=== PATIENT | female | born 1985 | race Hispanic/Latino ===

== ENCOUNTER 2022-02-13 09:06 | Outpatient (CLI) | payer OTHER | END 2022-02-13 09:07 | disposition home or self-care (01) | LOC: CSHULT 09:06 | PROVIDERS: ATTEND Family Medicine | DX: O09.522 Supervision of elderly multigravida, second trimester (principal); O32.2XX0 Maternal care for transverse and oblique lie, not applicable or unspecified; Z3A.20 20 weeks gestation of pregnancy | CPT/HCPCS: 76805 ==

== ENCOUNTER 2022-06-23 14:34 | Inpatient (IN) | payer OTHER ==
[2022-06-22 11:56] LABS: Hemoglobin 13.8 g/dL (12.0-15.5); Mean Corpuscular HGB CONC 34.4 g/dL (32.0-36.0); Mean Corpuscular Hemoglobin 30.9 pg (27.0-33.0); Mean Corpuscular Volume 89.7 fl (81.6-98.3); Mean Platelet Volume 10.4 fl (7.4-10.4); Platelet Count 234 10x3/uL (150-450); RBC Distribution Width 13.8 % (11.5-14.5); Red Blood Cell (RBC) Count 4.47 10x6/uL (3.90-5.03); White Blood Cell (WBC) Count 10.6 10x3/uL (3.5-10.5)
[2022-06-22 12:25] LABS: SARS-CoV-2 NAA Rapid Test Not Detected (NotDetected)
[2022-06-22 12:32] LABS: Syphilis Antibody Nonreactive (Nonreactive); Syphilis Antibody Index 0.05 S/CO (<1.00 Non-Reactive)
[2022-06-22 12:34] LABS: Hep B Surf Ag Non-Reactive S/CO (NonReactive)
[2022-06-22 12:51] LABS: HBSAg Index 0.18 S/CO (0-0.99)
[2022-06-23 14:42] VITALS: BMI 38.7
[2022-06-23] MEDS ORDERED: Bicitra 30 ML UDCUP PO PRN (14:42)
[2022-06-23] MEDS ORDERED: Famotidine/PF 20 mg/2ml Vial SLOW IVP PRN (14:42)
[2022-06-23] MEDS ORDERED: Ondansetron PF 4 MG/2 ML Vial IVP PRN ×2 (14:42→18:20)
[2022-06-23] MEDS ORDERED: hydrALAZINE 20 MG/ML VIAL SLOW IVP PRN ×2 (14:42→22:42)
[2022-06-23] MEDS ORDERED: Promethazine HCl 25 MG/ML VIAL IM PRN ×3 (14:42→22:42)
[2022-06-23] MEDS ORDERED: CEFAZOLIN 2 GM in Sodium Chloride 0.9% 100 ML IVPB SCH (14:42)
[2022-06-23] MEDS: Lactated Ringer's 1,000 ML IV SCH ×2 (15:40→16:55)
[2022-06-23] MEDS ORDERED: Phenylephrine 40 MG/NS 250 ML 250 ML ONE (16:11)
[2022-06-23] MEDS ORDERED: Ondansetron PF 4 MG/2 ML Vial ONE ×2 (16:12→18:04)
[2022-06-23] MEDS ORDERED: Morphine PF 10 MG/10 ML VIAL ONE (16:12)
[2022-06-23] MEDS ORDERED: Dexamethasone 4 mg/ml Vial ONE (16:12)
[2022-06-23] MEDS ORDERED: Oxytocin 10 UNITS/ML VIAL ONE (16:12)
[2022-06-23] MEDS ORDERED: ePHEDrine Sulfate 50 MG/10 ML VIAL ONE (18:04)
[2022-06-23] MEDS ORDERED: PHENYLEPHRINE-NS 100 MCG/ML 10 ML SYRINGE ONE (18:04)
[2022-06-23] MEDS ORDERED: Fentanyl 100 MCG/2 ML VIAL ONE (18:04)
[2022-06-23] MEDS ORDERED: Promethazine HCl 25 MG SUPP PR PRN (18:20)
[2022-06-23] MEDS ORDERED: Naloxone HCl 0.4 mg/ml Vial IVP PRN ×2 (18:20)
[2022-06-23] MEDS ORDERED: Moisturizing Cream (Eucerin) 113 GM JAR TOP PRN (18:20)
[2022-06-23] MEDS ORDERED: diphenhydrAMINE 50 MG/ML VIAL IVP PRN (18:20)
[2022-06-23] MEDS ORDERED: Communication Order-Pharmacy FS SCH ×2 (18:30→22:45)
[2022-06-23] MEDS ORDERED: Ketorolac Tromethamine 30 MG/ML VIAL ONE (19:44)
[2022-06-23] MEDS ORDERED: NS w/ Oxytocin 30 units 500 ML ONE (21:43)
[2022-06-23] MEDS ORDERED: HYDROcodone/Acetaminophen 5/325 mg Tablet PO PRN (22:42)
[2022-06-23] MEDS ORDERED: Lanolin Ointment 7 GM TUBE TOP PRN (22:42)
[2022-06-23] MEDS ORDERED: Boostrix 0.5 ML (Tdap) VIAL IM ONE (22:42)
[2022-06-23] MEDS ORDERED: diphenhydrAMINE 25 MG CAP PO PRN (22:42)
[2022-06-23] MEDS ORDERED: Docusate 100 MG CAP PO SCH (23:00)
[2022-06-23] MEDS ORDERED: Ferrous Sulfate 325 MG TAB PO SCH (23:00)
[2022-06-23] MEDS ORDERED: NS w/ Oxytocin 30 units 500 ML IV SCH (23:00)
[2022-06-23] MEDS: Ondansetron PF 4 MG/2 ML Vial IVP PRN (23:20)
[2022-06-24] MEDS ORDERED: Ketorolac Tromethamine 30 MG/ML VIAL IVP SCH (02:00)
[2022-06-24] MEDS: Ketorolac Tromethamine 30 MG/ML VIAL IVP SCH ×3 (02:12→13:26)
[2022-06-24 04:12] LABS: Hemoglobin 13.3 g/dL (12.0-15.5); Mean Corpuscular HGB CONC 34.5 g/dL (32.0-36.0); Mean Corpuscular Hemoglobin 31.2 pg (27.0-33.0); Mean Corpuscular Volume 90.6 fl (81.6-98.3); Mean Platelet Volume 10.5 fl (7.4-10.4); Platelet Count 224 10x3/uL (150-450); RBC Distribution Width 13.4 % (11.5-14.5); Red Blood Cell (RBC) Count 4.26 10x6/uL (3.90-5.03); White Blood Cell (WBC) Count 14.2 10x3/uL (3.5-10.5)
[2022-06-24] MEDS: Prenatal Vitamin 1 TAB PO SCH (08:36)
[2022-06-24] MEDS: Docusate 100 MG CAP PO SCH ×2 (08:37→21:41)
[2022-06-24] MEDS: Ferrous Sulfate 325 MG TAB PO SCH (08:39)
[2022-06-24] MEDS: Ondansetron PF 4 MG/2 ML Vial IVP PRN (14:57)
[2022-06-24] MEDS: Simethicone Chewable 80 MG TAB PO PRN ×2 (15:29→19:33)
[2022-06-24] MEDS: HYDROcodone/Acetaminophen 5/325 mg Tablet PO PRN ×2 (16:01→19:33)
[2022-06-24] MEDS: Naloxone HCl 0.4 mg/ml Vial IV PRN ×2 (17:47→18:38)
[2022-06-24] MEDS: Ibuprofen 800 MG TAB PO SCH (21:42)
[2022-06-25] MEDS: Simethicone Chewable 80 MG TAB PO PRN ×5 (00:18→22:05)
[2022-06-25] MEDS: HYDROcodone/Acetaminophen 5/325 mg Tablet PO PRN ×6 (00:18→22:05)
[2022-06-25] MEDS: Naloxone HCl 0.4 mg/ml Vial IV PRN (01:32)
[2022-06-25] MEDS: Ibuprofen 800 MG TAB PO SCH ×3 (05:11→21:53)
[2022-06-25] MEDS: Ferrous Sulfate 325 MG TAB PO SCH ×3 (07:47→21:48)
[2022-06-25] MEDS: Docusate 100 MG CAP PO SCH ×2 (08:09→21:53)
[2022-06-25] MEDS: Prenatal Vitamin 1 TAB PO SCH (08:09)
[2022-06-25] MEDS: Bisacodyl 10 MG SUPP PR PRN ×2 (12:42→21:58)
[2022-06-26] MEDS: Simethicone Chewable 80 MG TAB PO PRN ×2 (05:20→10:41)
[2022-06-26] MEDS: Ibuprofen 800 MG TAB PO SCH (05:20)
[2022-06-26] MEDS: HYDROcodone/Acetaminophen 5/325 mg Tablet PO PRN ×2 (05:20→10:41)
[2022-06-26] MEDS: Ferrous Sulfate 325 MG TAB PO SCH (07:34)
[2022-06-26] MEDS: Docusate 100 MG CAP PO SCH (07:57)
[2022-06-26] MEDS: Prenatal Vitamin 1 TAB PO SCH (07:57)
[2022-06-26 08:35] VITALS: BP 107/65; TEMP 98
[2022-06-26] MEDS ORDERED: Milk Of Magnesia 30 ML UDCUP PO SCH (09:15)
== END 2022-06-26 12:15 | disposition home or self-care (01) | DRG 788 ==
LOC: CSHLD 14:34 → CSHPP 21:56
PROVIDERS: ADMIT Family Medicine; ATTEND Family Medicine
PROC: 10D00Z1 Extraction of Products of Conception, Low, Open Approach (ICD-10-PCS; principal; 2022-06-23)
DX: O34.211 Maternal care for low transverse scar from previous cesarean delivery (principal); Z20.822 Contact with and (suspected) exposure to COVID-19; O24.420 Gestational diabetes mellitus in childbirth, diet controlled; Z3A.39 39 weeks gestation of pregnancy; Z37.0 Single live birth
CPT/HCPCS: 36415; 51702; 85027; 86780; 86850; 86900; 86901; 87340; J0690; J1100; J1885; J2274; J2310; J2405; J2590; J3010; J3490; J7120; U0002

== ENCOUNTER 2022-06-29 09:44 | Inpatient (IN) | payer OTHER ==
[2022-06-29 10:49] LABS: Hemoglobin 10.7 g/dL (12.0-15.5); Mean Corpuscular HGB CONC 33.3 g/dL (32.0-36.0); Mean Corpuscular Hemoglobin 30.1 pg (27.0-33.0); Mean Corpuscular Volume 90.4 fl (81.6-98.3); Mean Platelet Volume 10.2 fl (7.4-10.4); Platelet Count 264 10x3/uL (150-450); Red Blood Cell (RBC) Count 3.55 10x6/uL (3.90-5.03); White Blood Cell (WBC) Count 10.1 10x3/uL (3.5-10.5)
[2022-06-29 10:50] LABS: MDiff Complete? YES
[2022-06-29 11:16] LABS: ALT (SGPT) 35 U/L (8-55); AST (SGOT) 21 U/L (5-34); Albumin 2.9 g/dL (3.5-5.0); Alkaline Phosphatase 123 U/L (40-110); Anion Gap 16 mmol/L (10-20); BUN (Urea Nitrogen) 7 mg/dL (7.0-18.7); Bilirubin, Total 0.5 mg/dL (0.2-1.2); Calc. Creatinine Clearance 0 mL/min (70-130); Calcium 8.6 mg/dL (7.8-10.44); Carbon Dioxide 19 mmol/L (22-29); Chloride 104 mmol/L (98-107); Estimated GFR 119; Globulin 3.3 g/dL (2.4-3.5); Glucose 83 mg/dL (70-105); Lipase 10 U/L (8-78); Potassium 3.4 mmol/L (3.5-5.1); Protein, Total 6.2 g/dL (6.0-8.3); Sodium 136 mmol/L (136-145)
[2022-06-29 11:28] LABS: Band 9 % (5-11); Eosinophils 1 % (0-10); Lymphocytes 10 % (21-51); Metamyelocyte 1 % (0-0); Monocytes 4 % (0-10); Myelocyte 1 % (0-0); Neutrophil 73 % (42-75); Reactive Lymphocytes 1 % (0-10)
[2022-06-29 11:29] LABS: Platelet Morphology Comment Appears Adequate
[2022-06-29 11:30] LABS: RBC Morphology Normal
[2022-06-29 11:48] LABS: Bilirubin Neg (Negative); Blood, Urine 25 (Negative); Clarity Clear (Clear); Glucose, Urine (Dipstick) Normal (Negative); Ketone, Urine 50 mg/dL (Negative); Leukocyte Negative (Negative); Nitrite Negative (Negative); Protein, Urine (Dipstick) 15 mg/dl (Neg-Trace)
[2022-06-29] MEDS ORDERED: Iopamidol 300 61% 100 ML VIAL FS ONE (11:52)
[2022-06-29 12:07] LABS: Bacteria/HPF Rare-Few HPF (None Seen); RBC/HPF 0-3 HPF (0-3); Squamous Epithelial 0-3 HPF (0-3); Transitional Epithelial 0-3 HPF (None Seen); WBC/HPF 0-3 HPF (0-3)
[2022-06-29] MEDS ORDERED: Ondansetron PF 4 MG/2 ML Vial ONE (12:42)
[2022-06-29] MEDS ORDERED: Morphine 4 MG/ML VIAL ONE (12:42)
[2022-06-29] MEDS ORDERED: hydrALAZINE 20 MG/ML VIAL SLOW IVP PRN (14:27)
[2022-06-29] MEDS ORDERED: Acetaminophen 650 MG Suppository PR PRN (14:28)
[2022-06-29] MEDS ORDERED: Ondansetron PF 4 MG/2 ML Vial IVP PRN (14:28)
[2022-06-29] MEDS ORDERED: Ondansetron ODT 4 MG TAB PO PRN (14:28)
[2022-06-29] MEDS ORDERED: Acetaminophen 325 MG TAB PO PRN (14:28)
[2022-06-29] MEDS ORDERED: Electrolyte Replacement Protocol 1 EACH FS SCH (14:30)
[2022-06-29] MEDS ORDERED: Polyethylene Glycol 3350 17 GM Packet PO PRN (14:32)
[2022-06-29 15:04] LABS: Magnesium 1.9 mg/dL (1.6-2.6)
[2022-06-29] MEDS ORDERED: Electrolyte Replacement Protocol FS PRN (15:30)
[2022-06-29 16:41] VITALS: BMI 40.1
[2022-06-29] MEDS: Morphine 4 MG/ML VIAL SLOW IVP PRN ×2 (16:41→20:46)
[2022-06-29] MEDS: Sodium Chloride 0.9% 1,000 ML IV SCH ×2 (16:41→23:45)
[2022-06-29] MEDS ORDERED: Potassium Chloride 20 MEQ TAB PO SCH (18:15)
[2022-06-29] MEDS ORDERED: Magnesium 2 GM/50 ML(in water) 2 GM in Premix Bag 1 BAG IVPB SCH (18:15)
[2022-06-30] MEDS: Morphine 4 MG/ML VIAL SLOW IVP PRN ×5 (01:03→20:06)
[2022-06-30 04:29] LABS: Mean Corpuscular HGB CONC 33.6 g/dL (32.0-36.0); Mean Corpuscular Hemoglobin 30.5 pg (27.0-33.0); Mean Corpuscular Volume 90.9 fl (81.6-98.3); Mean Platelet Volume 10.3 fl (7.4-10.4); Platelet Count 280 10x3/uL (150-450); RBC Distribution Width 14.1 % (11.5-14.5); Red Blood Cell (RBC) Count 3.28 10x6/uL (3.90-5.03); White Blood Cell (WBC) Count 14.1 10x3/uL (3.5-10.5)
[2022-06-30 04:45] LABS: MDiff Complete? YES
[2022-06-30 04:48] LABS: Band 22 % (5-11); Lymphocytes 18 % (21-51); Metamyelocyte 1 % (0-0); Monocytes 13 % (0-10); Myelocyte 1 % (0-0); Neutrophil 44 % (42-75)
[2022-06-30 04:49] LABS: Dohle Bodies SLIGHT; Large Platelets SLIGHT; Platelet Morphology Comment Appears Adequate
[2022-06-30 04:50] LABS: RBC Morphology Normal
[2022-06-30 04:58] LABS: ALT (SGPT) 42 U/L (8-55); AST (SGOT) 34 U/L (5-34); Albumin 2.7 g/dL (3.5-5.0); Alkaline Phosphatase 129 U/L (40-110); Anion Gap 13 mmol/L (10-20); BUN (Urea Nitrogen) 5 mg/dL (7.0-18.7); Bilirubin, Total 0.4 mg/dL (0.2-1.2); Calc. Creatinine Clearance 172 mL/min (70-130); Calcium 8.1 mg/dL (7.8-10.44); Carbon Dioxide 20 mmol/L (22-29); Chloride 110 mmol/L (98-107); Estimated GFR 117; Globulin 3.2 g/dL (2.4-3.5); Glucose 90 mg/dL (70-105); Lipase 9 U/L (8-78); Magnesium 2.1 mg/dL (1.6-2.6); Potassium 3.1 mmol/L (3.5-5.1); Protein, Total 5.9 g/dL (6.0-8.3); Sodium 140 mmol/L (136-145)
[2022-06-30] MEDS ORDERED: Potassium Chloride 20 MEQ TAB PO SCH (05:15)
[2022-06-30] MEDS: Potassium Chloride 20 MEQ in Premix Bag 1 BAG IVPB SCH ×2 (06:36→09:51)
[2022-06-30] MEDS ORDERED: Piperacillin/Tazobactam 3.375 GM in Sodium Chloride 0.9% 100 ML IVPB SCH ×2 (09:00→12:00)
[2022-06-30] MEDS: Sodium Chloride 0.9% 1,000 ML IV SCH ×4 (09:46→23:04)
[2022-06-30] MEDS ORDERED: Fentanyl 100 MCG/2 ML VIAL ONE (11:13)
[2022-06-30] MEDS: Piperacillin/Tazobactam 3.375 GM in Sodium Chloride 0.9% 100 ML IVPB SCH ×3 (15:39→20:35)
[2022-07-01] MEDS: Morphine 4 MG/ML VIAL SLOW IVP PRN ×5 (00:12→20:14)
[2022-07-01 04:54] LABS: ALT (SGPT) 40 U/L (8-55); AST (SGOT) 27 U/L (5-34); Albumin 2.6 g/dL (3.5-5.0); Alkaline Phosphatase 113 U/L (40-110); Anion Gap 14 mmol/L (10-20); BUN (Urea Nitrogen) 8 mg/dL (7.0-18.7); Bilirubin, Total 0.5 mg/dL (0.2-1.2); Calc. Creatinine Clearance 184 mL/min (70-130); Calcium 8.3 mg/dL (7.8-10.44); Carbon Dioxide 17 mmol/L (22-29); Chloride 112 mmol/L (98-107); Estimated GFR 119; Globulin 3.1 g/dL (2.4-3.5); Glucose 80 mg/dL (70-105); Lipase 6 U/L (8-78); Mean Corpuscular HGB CONC 33.9 g/dL (32.0-36.0); Mean Corpuscular Hemoglobin 30.3 pg (27.0-33.0); Mean Corpuscular Volume 89.4 fl (81.6-98.3); Mean Platelet Volume 10.1 fl (7.4-10.4); Platelet Count 286 10x3/uL (150-450); Potassium 3.2 mmol/L (3.5-5.1); Protein, Total 5.7 g/dL (6.0-8.3); RBC Distribution Width 14.3 % (11.5-14.5); Sodium 140 mmol/L (136-145); White Blood Cell (WBC) Count 16.2 10x3/uL (3.5-10.5)
[2022-07-01 04:55] LABS: MDiff Complete? YES
[2022-07-01] MEDS: Sodium Chloride 0.9% 1,000 ML IV SCH ×3 (04:55→22:22)
[2022-07-01] MEDS: Piperacillin/Tazobactam 3.375 GM in Sodium Chloride 0.9% 100 ML IVPB SCH ×3 (04:57→22:23)
[2022-07-01 06:38] LABS: Band 7 % (5-11); Lymphocytes 7 % (21-51); Monocytes 5 % (0-10); Neutrophil 81 % (42-75)
[2022-07-01 06:43] LABS: Hypochromia SLIGHT = 6-15 cells (100X) (0-5/hpf); Platelet Morphology Comment Appears Adequate
[2022-07-01] MEDS ORDERED: Potassium Chloride 20 MEQ TAB PO SCH (09:00)
[2022-07-01] MEDS: Potassium Chloride 20 MEQ in Premix Bag 1 BAG IVPB SCH ×2 (09:26→11:00)
[2022-07-01] MEDS: Pantoprazole 40 MG VIAL IVP SCH (09:27)
[2022-07-01] MEDS ORDERED: Polyethylene Glycol 3350 17 GM Packet PO PRN (12:17)
[2022-07-01] MEDS ORDERED: Docusate 100 MG CAP PO PRN (12:17)
[2022-07-01] MEDS ORDERED: Potassium Chloride 20 MEQ in Premix Bag 1 BAG IVPB SCH (15:00)
[2022-07-01] MEDS ORDERED: Lidocaine 1% PF 5 ML VIAL ONE (16:31)
[2022-07-01] MEDS ORDERED: PROPOFOL 20 ML ONE (16:31)
[2022-07-01] MEDS ORDERED: Succinylcholine 200 MG/10 ml SYRINGE FS ONE (16:32)
[2022-07-01] MEDS ORDERED: Dexamethasone 4 mg/ml Vial ONE (16:32)
[2022-07-01] MEDS ORDERED: Ondansetron PF 4 MG/2 ML Vial ONE (16:32)
[2022-07-01] MEDS ORDERED: Rocuronium Bromide 10 MG/ML (10ML VIAL) ONE (16:32)
[2022-07-01] MEDS ORDERED: Fentanyl 100 MCG/2 ML VIAL ONE ×3 (16:34→18:42)
[2022-07-01] MEDS ORDERED: EPINEPHrine 1 MG/ML AMP ONE (16:55)
[2022-07-01] MEDS ORDERED: Iopamidol 30 ML ONE (16:55)
[2022-07-01] MEDS ORDERED: Bupivacaine 0.25% HCL 30 ML VIAL ONE (16:55)
[2022-07-01] MEDS ORDERED: Glycopyrrolate 0.2 MG/ML 5 ML SYRINGE ONE (18:25)
[2022-07-01] MEDS ORDERED: SUGAMMADEX SODIUM 200 MG/2 ML VIAL ONE (18:44)
[2022-07-02] MEDS: Sodium Chloride 0.9% 1,000 ML IV SCH ×2 (00:28→09:20)
[2022-07-02] MEDS: Morphine 4 MG/ML VIAL SLOW IVP PRN ×2 (00:29→05:57)
[2022-07-02 05:18] LABS: ALT (SGPT) 66 U/L (8-55); Albumin 2.6 g/dL (3.5-5.0); Alkaline Phosphatase 141 U/L (40-110); Anion Gap 16 mmol/L (10-20); BUN (Urea Nitrogen) 7 mg/dL (7.0-18.7); Bilirubin, Total 0.5 mg/dL (0.2-1.2); Calc. Creatinine Clearance 175 mL/min (70-130); Calcium 8.5 mg/dL (7.8-10.44); Carbon Dioxide 16 mmol/L (22-29); Chloride 114 mmol/L (98-107); Estimated GFR 118; Globulin 3.8 g/dL (2.4-3.5); Glucose 139 mg/dL (70-105); Potassium 4.3 mmol/L (3.5-5.1); Protein, Total 6.4 g/dL (6.0-8.3); Sodium 142 mmol/L (136-145)
[2022-07-02 05:27] LABS: AST (SGOT) 60 U/L (5-34)
[2022-07-02] MEDS: Piperacillin/Tazobactam 3.375 GM in Sodium Chloride 0.9% 100 ML IVPB SCH ×2 (05:44→13:25)
[2022-07-02 09:17] LABS: Hemoglobin 10.1 g/dL (12.0-15.5); Mean Corpuscular HGB CONC 33.8 g/dL (32.0-36.0); Mean Corpuscular Hemoglobin 30.1 pg (27.0-33.0); Mean Platelet Volume 10.4 fl (7.4-10.4); Platelet Count 332 10x3/uL (150-450); RBC Distribution Width 14.6 % (11.5-14.5); Red Blood Cell (RBC) Count 3.36 10x6/uL (3.90-5.03); White Blood Cell (WBC) Count 17.4 10x3/uL (3.5-10.5)
[2022-07-02] MEDS: Pantoprazole 40 MG VIAL IVP SCH (09:20)
[2022-07-02] MEDS: HYDROcodone/Acetaminophen 5/325 mg Tablet PO PRN ×3 (09:32→17:08)
[2022-07-02] MEDS ORDERED: Chloraseptic Spray 180 ml Bottle PO PRN (11:37)
[2022-07-02] MEDS ORDERED: Sodium Chloride 0.9% 1,000 ML IV SCH (11:45)
[2022-07-02 17:26] VITALS: BP 124/75; TEMP 97.5
== END 2022-07-02 18:00 | disposition home or self-care (01) | DRG 769 ==
LOC: CSHERS 09:44 → CSHTELE 15:23 → OBSVTOIN 07-01 08:16
PROVIDERS: ADMIT Internal Medicine; ATTEND Internal Medicine
PROC: 0FT44ZZ Resection of Gallbladder, Percutaneous Endoscopic Approach (ICD-10-PCS; principal; 2022-07-01)
PROC: BF141ZZ Fluoroscopy of Gallbladder, Bile Ducts and Pancreatic Ducts using Low Osmolar Contrast (ICD-10-PCS; 2022-07-01)
DX: O99.63 Diseases of the digestive system complicating the puerperium (principal); K85.10 Biliary acute pancreatitis without necrosis or infection; J90 Pleural effusion, not elsewhere classified; K80.20 Calculus of gallbladder without cholecystitis without obstruction; O24.430 Gestational diabetes mellitus in the puerperium, diet controlled; K59.00 Constipation, unspecified; O99.53 Diseases of the respiratory system complicating the puerperium; Z79.899 Other long term (current) drug therapy; E87.6 Hypokalemia; O99.285 Endocrine, nutritional and metabolic diseases complicating the puerperium; Z20.822 Contact with and (suspected) exposure to COVID-19
CPT/HCPCS: 36415; 74177; 76705; 80053; 81003; 81015; 83690; 83735; 85025; 85027; 87040; 88304; 94760; 96374; 96375; 96376; C1713; C9113; G0378; J0171; J1100; J2270; J2405; J2543; J2704; J3010; J3475; J3480; J3490; J7050; Q9967; S0020; U0003; U0005